=== PATIENT | female | born 1985 | race African-American/Black ===

== ENCOUNTER 2020-02-06 19:23 | Emergency (ER) | payer BC, OTHER ==
[~2020-02-06] VITALS: Ht 157.5 cm; Wt 58.6 kg
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
[2020-02-06] MEDS ORDERED: IBUPROFEN 800 MG TABLET PO ONE (20:00)
[2020-02-06] MEDS ORDERED: METHOCARBAMOL 750 MG TABLET PO ONE (20:00)
[2020-02-06] MEDS ORDERED: IBUPROFEN 800 MG TABLET ONE (20:10)
--- NOTE | 2020-02-06 20:10 | NUR ---
PT BACK FROM RAD, ALYX NOTED. VSS. PHILLY RN AT BEDSIDE TO ASSIST WITH MEDICATION ADMIN
[2020-02-06] MEDS ORDERED: METHOCARBAMOL 500 MG TABLET ONE (20:11)
--- NOTE | 2020-02-06 20:24 | NUR ---
GLADYS SAHNI AT BEDSIDE FOR RECHECK, DISCUSSING DISCHARGE POC
[2020-02-06 20:39] VITALS: BP 128/89
== END 2020-02-06 20:42 | disposition home or self-care (01) ==
LOC: ED 20:07
DX: S29.012A Strain of muscle and tendon of back wall of thorax, initial encounter (principal); V49.49XA Driver injured in collision with other motor vehicles in traffic accident, initial encounter; Y93.89 Activity, other specified; Y92.410 Unspecified street and highway as the place of occurrence of the external cause; Y99.8 Other external cause status
CPT/HCPCS: 72072; 99283

== ENCOUNTER 2020-11-19 14:08 | Day surgery (SDC) | payer BC ==
[~2020-11-19] VITALS: Ht 157.5 cm; Wt 56.1 kg
[2020-11-19] MEDS ORDERED: NO HOME MEDS PER PT (14:42)
[2020-11-19] MEDS ORDERED: CHLORHEXIDINE 15 ML UDC ONE (14:47)
[2020-11-19 14:59] VITALS: BP 135/93
[2020-11-19] MEDS ORDERED: LACTATED RINGERS 1,000 ML IV SCH (15:00)
[2020-11-19] MEDS ORDERED: CHLORHEXIDINE 15 ML UDC PO ONE (15:00)
[2020-11-19 15:11] LABS: HCG UR SG 1.024 (1.003-1.030)
[2020-11-19] MEDS ORDERED: FENTANYL PF 100 MCG/2ML IV PRN (16:30)
[2020-11-19] MEDS ORDERED: OXYcodone 5 MG/5 ML ORAL.SOL UDC PO PRN (16:30)
[2020-11-19] MEDS ORDERED: EPHEDRINE 50 MG/ML, 1ML IVPush PRN (16:30)
[2020-11-19] MEDS ORDERED: PROMETHAZINE 25 MG/ML, 1ML IVPush PRN (16:30)
[2020-11-19] MEDS ORDERED: HYDROmorphone 1 MG/ML, 1ML INJ IVPush PRN (16:30)
[2020-11-19] MEDS ORDERED: LABETALOL 5MG/ML, 20ML IV PRN (16:30)
[2020-11-19] MEDS ORDERED: ACETAMINOPHEN 325 MG TABLET PO PRN (16:30)
[2020-11-19] MEDS ORDERED: ONDANSETRON 2MG/ML, 2ML IVPush PRN (16:30)
[2020-11-19] MEDS ORDERED: hydrALAzine 20 MG/ML, 1ML IV PRN (16:30)
[2020-11-19] MEDS ORDERED: SILVER NITRATE STICK TP ONE (16:50)
[2020-11-19] MEDS ORDERED: FENTANYL PF 100 MCG/2ML ONE ×2 (17:02→17:13)
[2020-11-19] MEDS ORDERED: MIDAZOLAM 1 MG/ML, 2ML ONE (17:02)
[2020-11-19] MEDS ORDERED: OXYC1TAB14 PO (17:09)
[2020-11-19] MEDS ORDERED: IBUP-1223 PO (17:09)
[2020-11-19] MEDS ORDERED: CEFAZOLIN 1,000 MG ONE (17:16)
[2020-11-19] MEDS ORDERED: PROPOFOL 10 MG/ML, 20ML ONE (17:16)
[2020-11-19] MEDS ORDERED: DEXAMETHASONE 4 MG/ML, 1ML ONE (17:16)
[2020-11-19] MEDS ORDERED: ONDANSETRON 2MG/ML, 2ML ONE (17:16)
[2020-11-19] MEDS ORDERED: LIDOCAINE/PF 1%, 30ML ONE (17:25)
[2020-11-19] MEDS ORDERED: EPHEDRINE 50 MG/ML, 1ML ONE (17:36)
== END 2020-11-19 19:00 | disposition home or self-care (01) ==
LOC: OR 14:08
PROVIDERS: ATTEND Obstetrics & Gynecology
DX: D06.0 Carcinoma in situ of endocervix (principal); Z20.822 Contact with and (suspected) exposure to COVID-19
CPT/HCPCS: 57520; 81025; 87635; 88305; 88307; J0690; J1100; J2250; J2405; J2704; J3010; J7120